=== PATIENT | female | born 1970 | race American Indian/Alaskan Native ===

== ENCOUNTER 2016-10-13 07:53 | Day surgery (SDC) | payer MEDICAID ==
[2016-10-12 11:50] LABS: Basophils % (Auto) 0.9 % (0.0-1.8); Eosinophils % (Auto) 1.9 % (0.0-4.3); Mean Corpuscular HGB Conc 29 % (30-34); Platelet Count 278 K/mm3 (140-440); Red Blood Count 4.41 M/mm3 (3.65-5.03); White Blood Count 8.7 K/mm3 (4.5-11.0)
[2016-10-12 11:51] LABS: Hematocrit 24.9 % (30.3-42.9); Hemoglobin 7.1 gm/dl (10.1-14.3); Mean Corpuscular Hemoglobin 16 pg (28-32); Mean Corpuscular Volume 57 fl (79-97); Red Cell Distribution Width 21.6 % (13.2-15.2)
--- NOTE | 2016-10-13 08:06 | Anesthesia Consultation ---
Anesthesia Consult and Med Hx - Airway Anesthetic Teeth Evaluation: Poor (missing multiple) ROM Head & Neck: Adequate Mental/Hyoid Distance: Adequate Mallampati Class: Class II Intubation Access Assessment: Probably Good - Pulmonary Exam CTA: Yes - Cardiac Exam Cardiac Exam: RRR - Pre-Operative Health Status ASA Pre-Surgery Classification: ASA2 Proposed Anesthetic Plan: General - Pre-Anesthesia Comment Pre-Anesthesia Comments: H&H- 7.03/08.9 - Pulmonary Hx Smoking: Yes - Hematic Hx Anemia: Yes - Other Systems Hx Alcohol Use: Yes (occas)
--- NOTE | 2016-10-13 08:09 | Anesthesia Day of Surgery ---
Anesthesia Day of Surgery - Day of Surgery Patient Examined: Yes Patient H&P Reviewed: Yes Patient is NPO: Yes
--- NOTE | 2016-10-13 08:52 | Short Stay Summary ---
Short Stay Documentation Date of service: 10/13/16 Narrative H&P: Pt is a 45yo BF LMP 10/06/16 presents for a Hysteroscopy and D&C due to prolonged heavy vaginal bleeding. She has a history of uterine fibroids, and an endometrial biopsy was attempted in the office, but was unsuccessful due to cervical stenosis. - History Principal diagnosis: Uterine fibroids; Menorrhagia H&P: obtained from office Past Medical History: other (uterine fibroids) Past Surgical History: Social history: no significant social history, single - Allergies and Medications Current Medications: Allergies Penicillins Allergy (Verified 09/30/16 15:47) Rash Home Medications Medication Instructions Recorded Confirmed Last Taken Type No Known Home Medications [No 09/30/16 09/30/16 Unknown History Reported Home Medications] Active Medications Famotidine (Pepcid) 20 mg PO PREOP NR Stop: 10/13/16 15:00 Sodium Chloride (Nacl 0.9% 1000 Ml) 1,000 mls @ 42 mls/hr IV DIRECT SHARMIN Midazolam HCl (Versed) 2 mg IV PREOP NR Stop: 10/13/16 23:59 - Physical exam General appearance: no acute distress Integumentary: no rash HEENT: Atraumatic Lungs: Clear to auscultation Breasts: deferred Heart: Regular rate Gastrointestinal: normal Female Genitourinary: deferred Rectal Exam: deferred Extremities: no ischemia Neurological: Normal gait, Normal speech - Brief post op/procedure progress note Date of procedure: 10/13/16 Pre-op diagnosis: 1. Uterine fibroids 2. Menorrhagia Post-op diagnosis: same Procedure: 1. Hysteroscopy 2. Dilatation and Curettage Anesthesia: MAC Findings: An enlarged uterus ~ 14 weeks size with a cervical fibroid. Uterine cavity showed lush amounts of endometrial tissue and submucosal fibroid. Surgeon: LIBRA VERDUZCO Estimated blood loss: minimal Pathology: list (endometrial curetting) Specimen disposition: to lab Condition: stable - Hospital course Hospital course: Unremarkable. - Disposition Condition at discharge: Good Disposition: DC-01 TO HOME OR SELFCARE - Discharge Diagnoses (1) Submucous uterine fibroid Status: Chronic (2) Menorrhagia Status: Chronic Qualifiers: Menorrahagia type: with irregular cycle Qualified Code(s): N92.1 - Excessive and frequent menstruation with irregular cycle Short Stay Discharge Plan Activity: no restrictions Diet: regular Follow up with: PRIMARY CARE, [Primary Care Provider] - 7 Days LIBRA VERDUZCO MD [Staff Physician] - 14 Days Prescriptions: Ferrous Sulfate [Feosol 325 MG tab] 325 mg PO BID #60 tablet HYDROcodone/APAP 5-325 [[place] 5/325] 1 each PO Q6HR PRN #20 tablet PRN Reason: Pain medroxyPROGESTERone ACETATE [Provera] 10 mg PO QDAY #10 tablet
[2016-10-13] MEDS: NACL 0.9% 1000 ML 1,000 ML IV SCH ×2 (08:59→11:27)
[2016-10-13] MEDS ORDERED: GARAMYCIN IV SCH (09:00)
[2016-10-13] MEDS ORDERED: CLEOCIN 600 MG/50 mL 600 MG/50 ML BAG IV NR (09:00)
[2016-10-13] MEDS ORDERED: PEPCID PO NR (09:00)
[2016-10-13] MEDS ORDERED: VERSED IV NR (09:00)
[2016-10-13] MEDS ORDERED: GARAMYCIN/NS 80 MG/100 ML 100 ML IV NR (09:00)
[2016-10-13] MEDS ORDERED: DIPRIVAN 10 MG/ML IV ONE (10:07)
[2016-10-13] MEDS ORDERED: SUBLIMAZE ONE (10:07)
[2016-10-13] MEDS ORDERED: XYLOCAINE MPF 2% ONE (10:08)
[2016-10-13] MEDS ORDERED: ZOFRAN ONE (10:08)
[2016-10-13] MEDS ORDERED: NACL 0.9% IR ONE ×2 (10:26→10:27)
[2016-10-13] MEDS ORDERED: TORADOL ONE (10:37)
--- NOTE | 2016-10-13 10:54 | Operative Report ---
Operative Report Operative Report: PREOPERATIVE DIAGNOSIS: 1. Uterine fibroids 2. Menorrhagia 3. Cervical stenosis POSTOPERATIVE DIAGNOSIS: Same OPERATIVE PROCEDURE: 1. Hysteroscopy 2. Dilatation and curettage. SURGEON: Travis Summers MD ANESTHESIA: Gen. [facility] ANESTHESIOLOGIST: Dr. Campos ESTIMATED BLOOD LOSS: 10 mL's FINDINGS: A 14 week size multiple myomatous uterus with a large cervical fibroid. The uterine cavity showed lush amounts of endometrial tissue and a submucosal fibroid COMPLICATIONS: None COUNTS: Correct x3. PROCEDURE: After the patient was correctly identified as the patient, and after general anesthesia was administered, the patient was prepped and draped in the usual sterile fashion and placed in dorsal lithotomy position. First, the bladder was emptied using a straight catheter. Next, a speculum was placed in the vaginal vault and the anterior lip of the cervix was grasped using a single-tooth tenaculum. There was a large cervical fibroid displacing the cervical os. The uterus was sounded to 10 cm. The cervical os was sequentially dilated, and the hysteroscope was introduced into the cervical canal. Visualization of the endometrial cavity showed lush amounts of endometrial tissue and a submucosal fibroid. The hysteroscope was then removed, and sharp curettage was performed yielding lush amounts of endometrial tissue which was sent to pathology. After all the endometrial tissue was removed, the procedure was considered complete. All instruments were removed from the vagina. The patient tolerated the procedure well and was transferred to the recovery room in stable condition.
[2016-10-13] MEDS: DILAUDID IV PRN ×2 (11:20→11:32)
[2016-10-13] MEDS ORDERED: ZOFRAN IV PRN (12:00)
[2016-10-13] MEDS ORDERED: NORCO 5/325 PO ONE (12:00)
[2016-10-13] MEDS ORDERED: BENADRYL IV ONE (12:25)
--- NOTE | 2016-10-13 13:06 | Post Anesthesia Evaluation ---
- Post Anesthesia Evaluation Patient Participated: Yes Airway Patent: Yes Stable Respiratory Function: Yes Nausea/Vomiting: No Temp > 96.8F: Yes Pain Manageable: Yes Adequeate Hydration: Yes Anesthesia Complications: No Block Receding Appropriately: Not Applicable Patient on Ventilator: No
[2016-10-13 14:25] VITALS: BP 130/72
== END 2016-10-13 13:15 | disposition home or self-care (01) ==
LOC: OR 07:53
PROVIDERS: ATTEND Obstetrics & Gynecology
DX: D25.0 Submucous leiomyoma of uterus (principal); N88.2 Stricture and stenosis of cervix uteri; D26.0 Other benign neoplasm of cervix uteri; F17.210 Nicotine dependence, cigarettes, uncomplicated; Z72.89 Other problems related to lifestyle; Z88.0 Allergy status to penicillin
CPT/HCPCS: 36415; 58558; 84703; 85025; 86850; 86900; 86901; 88305; A4217; J1170; J1200; J1580; J1885; J2250; J2405; J2704; J3010; J7030

== ENCOUNTER 2016-12-21 05:55 | Inpatient (IN) | payer MEDICAID, OTHER ==
--- NOTE | 2016-12-20 11:36 | Anesthesia Consultation ---
Anesthesia Consult and Med Hx Date of service: 12/20/16 - Airway Anesthetic Teeth Evaluation: Good ROM Head & Neck: Adequate Mental/Hyoid Distance: Adequate Mallampati Class: Class II Intubation Access Assessment: Probably Good - Pulmonary Exam CTA: Yes - Cardiac Exam Cardiac Exam: RRR Anesthetic Concerns: Patient has a fullness in neck, She denies thyroid problems and orthopnea. - Pre-Operative Health Status ASA Pre-Surgery Classification: ASA2 Proposed Anesthetic Plan: General - Pulmonary Hx Smoking: Yes (1/2 ppd) - Central Nervous System Hx Psychiatric Problems: No - Hematic Hx Anemia: Yes - Other Systems Hx Alcohol Use: Yes (occas) Hx Cancer: No
[2016-12-20 11:41] LABS: Basophils % (Auto) 0.3 % (0.0-1.8); Eosinophils % (Auto) 1.7 % (0.0-4.3); Mean Corpuscular HGB Conc 28 % (30-34); Platelet Count 122 K/mm3 (140-440); Red Blood Count 4.29 M/mm3 (3.65-5.03); White Blood Count 8.4 K/mm3 (4.5-11.0)
[2016-12-20 11:44] LABS: Hematocrit 24.3 % (30.3-42.9); Hemoglobin 6.7 gm/dl (10.1-14.3); Mean Corpuscular Hemoglobin 16 pg (28-32); Mean Corpuscular Volume 57 fl (79-97); Red Cell Distribution Width 23.4 % (13.2-15.2)
[~2016-12-21 05:55] MED LIST: LACTATED RINGERS 1,000 ML IV SCH; PEPCID PO NR; VERSED IV NR
[2016-12-21] MEDS ORDERED: NACL 0.9% 500 ML 500 ML IV ONE (06:40)
[2016-12-21] MEDS ORDERED: NACL BACTERIOSTATIC INFILTRATI ONE (06:41)
[2016-12-21] MEDS ORDERED: PEPCID PO NR (07:00)
[2016-12-21] MEDS ORDERED: NEO SYNEPHRINE/NS Syringe(OR USE) IV ONE (07:00)
[2016-12-21] MEDS ORDERED: CLEOCIN 600 MG/50 mL 600 MG/50 ML BAG IV SCH (07:00)
[2016-12-21] MEDS ORDERED: GARAMYCIN 80 MG in NACL 0.9% 100 ML IV SCH (07:00)
[2016-12-21] MEDS ORDERED: VERSED IV NR (07:00)
--- NOTE | 2016-12-21 07:05 | History and Physical Report ---
History of Present Illness Date of examination: 12/21/16 Date of admission: 12/21/16 05:55 Chief complaint: Symptomatic uterine fibroids History of present illness: Pt is a 46yo BF LMP 12/07/16 presents for surgical evaluation and treatment of uterine fibroids. She has a history of prolonged heavy vaginal bleeding with resulting blood transfusions for symptomatic anemia. Pelvic u/s confirmed uterine fibroids and endometrial biopsy showed proliferative endometrium. She is now scheduled for a Total Abdominal Hysterectomy with ovarian conservation. 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 Family/Genetic History: none Social history: no significant social history, single, smoking Medications and Allergies Allergies Allergy/AdvReac Type Severity Reaction Status Date / Time Penicillins Allergy Rash Verified 12/20/16 09:23 Home Medications Medication Instructions Recorded Confirmed Last Taken Type No Known Home Medications [No 12/20/16 12/20/16 Unknown History Reported Home Medications] Active Meds: Active Medications Famotidine (Pepcid) 20 mg PO PREOP NR Stop: 12/21/16 23:45 Last Admin: 12/21/16 06:47 Dose: 20 mg Lactated Ringer's (Lactated Ringers) 1,000 mls @ 100 mls/hr IV DIRECT SHARMIN Midazolam HCl (Versed) 2 mg IV PREOP NR Stop: 12/21/16 23:45 Review of Systems All systems: negative - Vital Signs Vital signs: Vital Signs Temp Pulse Resp BP 98.1 F 80 16 122/78 12/20/16 11:10 12/20/16 11:10 12/20/16 11:10 12/20/16 11:10 Temp Pulse Resp BP Pulse Ox 98.1 F 80 16 122/78 12/20/16 11:10 12/20/16 11:10 12/20/16 11:10 12/20/16 11:10 - Physical Exam Breasts: Positive: deferred Cardiovascular: Regular rate Lungs: Positive: Clear to auscultation Abdomen: Positive: normal appearance Genitourinary (Female): Positive: normal external genitalia Vagina: Positive: normal moisture Uterus: Positive: enlarged Extremities: Positive: normal Results Result Diagrams: 12/20/16 11:18 Abnormal lab results 12/20/16 12/20/16 Range/Units 11:18 11:18 Hgb 6.7 L (10.1-14.3) gm/dl Hct 24.3 L (30.3-42.9) % MCV 57 L (79-97) fl MCH 16 L (28-32) pg MCHC 28 L (30-34) % RDW 23.4 H (13.2-15.2) % Plt Count 122 L (140-440) K/mm3 Seg Neutrophils % 74.6 H (40.0-70.0) % Crossmatch See Detail All other labs normal. Assessment and Plan - Patient Problems (1) Anemia Onset Date: 12/21/16 Current Visit: Yes Status: Acute Qualifiers: Anemia type: iron deficiency Iron deficiency anemia type: chronic blood loss Vitamin B12 deficiency anemia type: V Folate deficiency anemia type: F Bone marrow failure anemia type: B Hemolytic anemia type: H Other causes of anemia: O Chronic kidney disease stage: C Qualified Code(s): D50.0 - Iron deficiency anemia secondary to blood loss (chronic) (2) Menorrhagia Onset Date: 12/21/16 Current Visit: Yes Status: Chronic Qualifiers: Menorrahagia type: with irregular cycle Qualified Code(s): N92.1 - Excessive and frequent menstruation with irregular cycle (3) Submucous uterine fibroid Onset Date: 12/21/16 Current Visit: Yes Status: Chronic Plan to address problem: A: Symptomatic uterine fibroids Menorrhagia Chronic blood loss anemia P: Admit for a Total Abdominal Hysterectomy Will transfuse 1 unit of blood now and use Cell saver during the procedure
[2016-12-21] MEDS ORDERED: DIPRIVAN 10 MG/ML IV ONE (07:27)
[2016-12-21] MEDS ORDERED: DILAUDID ONE (07:28)
[2016-12-21] MEDS ORDERED: XYLOCAINE MPF 2% ONE (07:30)
[2016-12-21] MEDS ORDERED: ZEMURON IV ONE (07:30)
--- NOTE | 2016-12-21 07:45 | Anesthesia Day of Surgery ---
Anesthesia Day of Surgery - Day of Surgery Patient Examined: Yes Patient H&P Reviewed: Yes Patient is NPO: Yes
[2016-12-21] MEDS ORDERED: DECADRON ONE ×2 (07:54→09:07)
[2016-12-21] MEDS ORDERED: MARCAINE 0.5% 30 ML INFILTRATI ONE ×2 (07:55→07:59)
[2016-12-21] MEDS ORDERED: CLONIDINE 1,000 MCG/10 ML VIAL EP ONE (07:55)
[2016-12-21] MEDS ORDERED: XYLOCAINE 1% 20 mL ONE (07:55)
[2016-12-21] MEDS ORDERED: SUBLIMAZE ONE (08:05)
[2016-12-21] MEDS ORDERED: NACL 0.9% IR ONE (08:56)
[2016-12-21] MEDS ORDERED: ACD-A IV ONE (08:57)
[2016-12-21] MEDS ORDERED: GARAMYCIN/NS 80 MG/100 ML 100 ML IV SCH (09:00)
[2016-12-21] MEDS ORDERED: ZOFRAN ONE (09:07)
[2016-12-21] MEDS ORDERED: NEOSTIGMINE ONE (09:16)
[2016-12-21] MEDS ORDERED: ROBINUL ONE (09:16)
--- NOTE | 2016-12-21 09:59 | Operative Report ---
Operative Report Operative Report: Date of procedure: 12/21/2016 Pre-operative diagnosis: 1. Symptomatic fibroid uterus 2. Menorrhagia 3. Chronic blood loss anemia Post-operative diagnosis: Same with pelvic adhesions Procedure name(s): 1. Total abdominal hysterectomy 2. Bilateral salpingectomy 3. Lysis of pelvic adhesions Surgeon: Travis Summers MD Rail Car Loader: Marino Durham SA Anesthesia: AASHISH block followed by general endotracheal intubation by Dr Campos EBL: 50 mL's Findings: A 14 week size multiple myomatous uterus with a large pedunculated fibroid. Normal ovaries bilaterally. Tubes showing evidence of previous tubal ligation bilaterally. Omental adhesions to the lower uterine segment. Procedure: After the patient was first correctly identified and after general anesthesia was administered she was prepped and draped in usual in the usual sterile fashion and placed in the dorsolithotomy position. The skin knife was used to make a transverse skin incision through the previous skin scar. The incision was extended down to the layer of the fascia which was nicked in the midline and extended laterally using Bovie cautery. The rectus muscles were dissected off the rectus fascia both superiorly and inferiorly, the rectus bellies in the midline and the peritoneum was entered under direct visualization. Exploration of the pelvic organs found the uterus to be enlarged with a large pedunculated fibroid, and the tubes showed evidence of previous tubal ligation bilaterally and ovaries were normal bilaterally. Next the bowels were packed back and the distal portion of the right fallopian tube was excised using the Enseal device. The right round ligament was clamped, cauterized and cut using the Enseal device. The right utero-ovarian ligament was clamped, cauterized and cut, thus freeing the right ovary from the right uterine sidewall. The same procedure was performed on the left. The distal portion of the left fallopian tube was excised using the Enseal device. The left round ligament was clamped, cauterized and cut using the Enseal device, and the left utero-ovarian ligament was clamped, cauterized and cut thus freeing the left ovary from the left uterine sidewall. The uterine vessels were then skeletonized bilaterally, and the bladder flap was taken down anteriorly and the omental adhesions to the lower uterine segment was taken down using both sharp and blunt dissection. The uterine vessels were then clamped, cauterized and cut and suture ligated bilaterally, and the cardinal ligaments were sequentially clamped, cauterized and cut down to the level of the uterosacral ligaments. The cervix was then amputated from the vaginal cuff and the specimen was handed off the surgical field. The vaginal cuff was then made hemostatic using several sutures of 0 Vicryl suture in a [id number] configuration. After excellent hemostasis was assured copious amounts of irrigation was then performed. The Tisseel sealant was then sprayed across the vaginal cuff and the superior pedicles bilaterally and after excellent hemostasis was assured the procedure was considered complete. All instruments removed from abdomen, and the peritoneum was closed using 0 Vicryl suture in a running interlocking fashion and the rectus muscles were also loosely re- approximated using 0 Vicryl suture in a [id number] configuration. The fascia was then re-approximated using #1 Vicryl suture in a running interlocking fashion, the subcutaneous layer made hemostatic using Bovie cautery and the skin edges re-approximated using 4-0 Vicryl suture in a sub- cuticular fashion. Patient tolerated the procedure well was transported to recovery room in stable condition.
[2016-12-21] MEDS: DILAUDID IV PRN ×4 (10:20→10:45)
[2016-12-21] MEDS ORDERED: NARCAN 0.4 MG/1 ML IV PRN (11:00)
[2016-12-21] MEDS ORDERED: REGLAN IV PRN (11:00)
[2016-12-21] MEDS ORDERED: NORCO 5/325 PO PRN (11:00)
[2016-12-21] MEDS ORDERED: ZOFRAN IV PRN (11:00)
[2016-12-21] MEDS ORDERED: TYLENOL PO PRN (11:00)
[2016-12-21] MEDS: D5LR 1,000 ML IV SCH ×2 (12:47→21:24)
[2016-12-21] MEDS: TORADOL IV PRN ×2 (12:47→21:21)
[2016-12-21] MEDS: BENADRYL PO PRN ×2 (14:10→23:17)
[2016-12-21] MEDS: CLEOCIN 600 MG/50 mL 600 MG/50 ML BAG IV SCH (16:37)
[2016-12-21] MEDS: PERCOCET 5/325 PO PRN ×2 (16:38→23:17)
[2016-12-21] MEDS: GARAMYCIN/NS 80 MG/100 ML 100 ML IV SCH (17:31)
[2016-12-21] MEDS: COLACE PO SCH (21:25)
[2016-12-22] MEDS: CLEOCIN 600 MG/50 mL 600 MG/50 ML BAG IV SCH (00:57)
[2016-12-22] MEDS: GARAMYCIN/NS 80 MG/100 ML 100 ML IV SCH (01:59)
[2016-12-22] MEDS: D5LR 1,000 ML IV SCH (05:12)
[2016-12-22] MEDS: TORADOL IV PRN (05:13)
[2016-12-22 05:39] LABS: Hematocrit 24.8 % (30.3-42.9); Hemoglobin 7.1 gm/dl (10.1-14.3)
[2016-12-22] MEDS: PERCOCET 5/325 PO PRN ×4 (06:13→23:16)
--- NOTE | 2016-12-22 06:58 | Progress Note ---
Assessment and Plan - Patient Problems (1) Anemia Onset Date: 12/21/16 Current Visit: Yes Status: Chronic Qualifiers: Anemia type: iron deficiency Iron deficiency anemia type: chronic blood loss Vitamin B12 deficiency anemia type: V Folate deficiency anemia type: F Bone marrow failure anemia type: B Hemolytic anemia type: H Other causes of anemia: O Chronic kidney disease stage: C Qualified Code(s): D50.0 - Iron deficiency anemia secondary to blood loss (chronic) (2) Menorrhagia Onset Date: 12/21/16 Current Visit: Yes Status: Resolved Qualifiers: Menorrahagia type: with irregular cycle Qualified Code(s): N92.1 - Excessive and frequent menstruation with irregular cycle (3) Submucous uterine fibroid Onset Date: 12/21/16 Current Visit: Yes Status: Resolved (4) S/P JANETH (total abdominal hysterectomy) Onset Date: 12/22/16 Current Visit: Yes Status: Resolved Plan to address problem: A: S/P JANETH - POD #1 Doing well Asymptomatic anemia - stable P: Continue RPOC Advance diet as tolerated Anticipate discharge in 24hrs Subjective - Subjective Date of service: 12/22/16 Principal diagnosis: s/p JANETH - POD #1 Interval history: Pt is feeling well without complaints. Tolerating a liquid diet without nausea or vomiting. Patient reports: appetite normal, voiding normally, pain well controlled, flatus , ambulating normally Objective - Vital Signs Latest vital signs: Vital Signs Temp Pulse Resp BP BP Pulse Ox 12/22/16 04:30 98.6 F 67 16 121/75 12/21/16 23:30 98.6 F 60 16 104/68 12/21/16 19:40 98.6 F 71 18 122/64 12/21/16 16:30 97.6 F 58 L 18 122/48 12/21/16 11:42 96.6 F L 66 16 101/63 12/21/16 10:57 12 12/21/16 10:45 98.1 F 69 14 102/65 100 12/21/16 10:44 12 12/21/16 10:37 14 12/21/16 10:30 63 14 106/66 100 12/21/16 10:20 18 12/21/16 10:15 64 18 111/72 100 12/21/16 10:05 70 16 110/77 100 12/21/16 10:00 72 14 112/78 100 12/21/16 09:55 66 14 102/68 100 12/21/16 09:50 97.5 F L 72 14 122/77 100 12/21/16 08:10 75 12 116/72 100 12/21/16 08:05 78 18 114/68 100 12/21/16 08:00 67 17 110/73 100 12/21/16 07:55 76 13 110/71 100 12/21/16 07:37 97.9 F 81 16 110/72 100 12/21/16 07:22 98.2 F 72 20 109/71 100 Intake and Output 12/21/16 12/21/16 12/22/16 14:59 22:59 06:59 Intake Total 875 1630 1575 Output Total 180 200 Balance 695 1430 1575 Intake: IV 625 1150 975 CLEOCIN 600 MG/50 mL 600 50 mg In 50 ml @ 100 mls/hr IV Q8H SHARMIN Rx#:[id number] D5lr 1,000 ml @ 125 mls/ 1000 975 hr IV DIRECT SHARMIN Rx#: [id number] Garamycin/Ns 80 mg/100 ml 100 100 ml @ 200 mls/hr IV Q8H SHARMIN Rx#:[id number] Oral 480 Intake, Free Water 600 Blood Product 250 Leukoreduced Red Blood 250 Cells Unit [id number] Output: Urine 180 200 Indwelling Catheter 200 Other: Total, Intake Amount 240 Total, Output Amount 200 Voiding Method Indwelling Catheter Toilet # Voids Void 1 - Exam Breasts: Present: deferred Cardiovascular: Present: Regular rate Lungs: Present: Clear to auscultation Abdomen: Present: normal appearance, soft Extremities: Present: normal Incision: Present: normal, dry, intact - Labs Labs: Abnormal lab results 12/20/16 12/22/16 Range/Units 11:18 05:21 Hgb 7.1 L (10.1-14.3) gm/dl Hct 24.8 L (30.3-42.9) % Crossmatch See Detail Laboratory Tests 12/20/16 12/20/16 12/20/16 11:18 11:18 11:18 WBC 8.4 RBC 4.29 Hgb 6.7 L Hct 24.3 L MCV 57 L MCH 16 L MCHC 28 L RDW 23.4 H Plt Count 122 L Lymph % (Auto) 18.1 [place] % (Auto) 5.3 Eos % (Auto) 1.7 Baso % (Auto) 0.3 Lymph # 1.5 [place] # 0.5 Eos # 0.1 Baso # 0.0 Seg Neutrophils % 74.6 H Seg Neutrophils # 6.3 HCG, Qual Negative Blood Type B POSITIVE Antibody Screen Negative Crossmatch See Detail 12/22/16 05:21 WBC RBC Hgb 7.1 L Hct 24.8 L MCV MCH MCHC RDW Plt Count Lymph % (Auto) [place] % (Auto) Eos % (Auto) Baso % (Auto) Lymph # [place] # Eos # Baso # Seg Neutrophils % Seg Neutrophils # HCG, Qual Blood Type Antibody Screen Crossmatch
[2016-12-22] MEDS: COLACE PO SCH ×2 (11:48→23:16)
--- NOTE | 2016-12-22 14:23 | Progress Note ---
Subjective Date of service: 12/22/16 Principal diagnosis: s/p JANETH - POD #1 Interval history: 1st POD after JANETH Patient is in the bed, comfortable. Pain is well controlled with pain meds. Ambulated well. No nausea or vomiting. No anesthesia complications. Objective - Constitutional Vitals: Vital Signs - 12hr 12/22/16 12/22/16 12/22/16 04:30 08:09 08:10 Temperature 98.6 F 98.3 F Pulse Rate 67 66 64 Respiratory 16 20 Rate Blood Pressure 121/75 116/68 [Left] O2 Sat by Pulse 100 100 Oximetry 12/22/16 12/22/16 11:05 11:07 Temperature 98.1 F Pulse Rate 59 L 54 L Respiratory 18 Rate Blood Pressure 116/60 [Left] O2 Sat by Pulse 100 100 Oximetry - Labs CBC & Chem 7: 12/22/16 05:21 Labs: Abnormal lab results 12/22/16 Range/Units 05:21 Hgb 7.1 L (10.1-14.3) gm/dl Hct 24.8 L (30.3-42.9) %
[2016-12-22] MEDS: MOTRIN PO PRN (17:56)
[2016-12-23] MEDS: MOTRIN PO PRN (03:18)
[2016-12-23] MEDS: PERCOCET 5/325 PO PRN (06:45)
--- NOTE | 2016-12-23 08:06 | Progress Note ---
Assessment and Plan POD # 2 s/p JANETH -Asymptomatic Anemia -Doing well P: -Discharged home today -Follow-up in clinic in 1-2 weeks for incision check - Patient Problems (1) S/P JANETH (total abdominal hysterectomy) Onset Date: 12/22/16 Current Visit: Yes Status: Resolved Subjective - Subjective Date of service: 12/23/16 Principal diagnosis: s/p JANETH - POD #2 Interval history: Patient seen and examined, stable doing well no issues. No shortness of breath or chest pain no fever or chills, ambulating without difficulty adequate bowel bladder function Patient reports: appetite normal, voiding normally, pain well controlled, flatus , ambulating normally, no dizzy ambulation, no nauseated Objective - Vital Signs Latest vital signs: Vital Signs Temp Pulse Resp Resp BP BP Pulse Ox 12/23/16 06:45 18 12/23/16 04:20 99.1 F 76 20 104/57 12/23/16 03:18 18 12/23/16 00:00 97.9 F 82 20 101/53 12/22/16 23:16 18 18 12/22/16 20:00 98.0 F 75 20 112/62 12/22/16 16:31 80 100 12/22/16 16:30 98.9 F 81 20 128/77 100 12/22/16 11:07 54 L 100 12/22/16 11:05 98.1 F 59 L 18 116/60 100 12/22/16 08:10 98.3 F 64 20 116/68 100 12/22/16 08:09 66 100 Intake and Output 12/22/16 12/23/16 12/23/16 23:59 07:59 15:59 Intake Total 540 240 Balance 540 240 Intake: Oral 540 240 Other: Total, Intake Amount 240 120 # Voids Void 1 1 - Exam Abdomen: Present: normal appearance, soft. Absent: distention, tenderness, guarding, rigidity Extremities: Present: normal Incision: Present: dry, intact
--- NOTE | 2016-12-23 08:12 | Discharge Summary ---
Providers - Providers Date of Admission: 12/21/16 05:55 Date of discharge: 12/23/16 Attending physician: LIBRA VERDUZCO Primary care physician: LULY DEWEY MD Hospitalization Reason for admission: vaginal bleeding, other (scheduled hysterectomy) Procedure: other (total abdominal hysterectomy) Incision: dry, intact Discharge diagnosis: other (status post total abdominal hysterectomy) Hospital course: Uncomplicated hospital course Condition at discharge: Good Disposition: DC-01 TO HOME OR SELFCARE - Discharge Diagnoses (1) S/P JANETH (total abdominal hysterectomy) Status: Resolved Plan - Discharge Medications Prescriptions: Ibuprofen [Motrin] 800 mg PO Q8HR PRN #30 tablet PRN Reason: Mild Pain Unrelieved By Apap oxyCODONE /ACETAMINOPHEN [Percocet 5/325] 1 tab PO Q6HR PRN #30 tablet PRN Reason: Pain - Provider Discharge Summary Activity: no sex for 6 weeks, no heavy lifting 4 weeks, no strenuous exercise Diet: routine Additional instructions: [] Smoking cessation referral if applicable(refer to patient education folder for contact #) [] Refer to [facility]'s [facility] Booklet Call your doctor immediately for: * Fever > 100.5 * Heavy vaginal bleeding ( >1 pad per hour) * Severe persistent headache * Shortness of breath * Reddened, hot, painful area to leg or breast * Drainage or odor from incision. * Keep incision clean and dry at all times and follow doctor's instructions regarding bathing/showering - Follow up plan Follow up: PRIMARY CARE, [Primary Care Provider] - 7 Days
[2016-12-23] MEDS: COLACE PO SCH (08:51)
[2016-12-23 09:21] VITALS: BP 124/78
== END 2016-12-23 10:00 | disposition home or self-care (01) | DRG 743 ==
LOC: 3A 05:55 → OB 10:09
PROVIDERS: ADMIT Obstetrics & Gynecology; ATTEND Obstetrics & Gynecology
PROC: 0UT90ZZ Resection of Uterus, Open Approach (ICD-10-PCS; principal; 2016-12-21)
DX: D25.0 Submucous leiomyoma of uterus (principal); D50.0 Iron deficiency anemia secondary to blood loss (chronic); N92.0 Excessive and frequent menstruation with regular cycle; Z88.0 Allergy status to penicillin
CPT/HCPCS: 36415; 64450; 84703; 85014; 85018; 85025; 86850; 86900; 86901; 86920; 88307; C9250; J0735; J1100; J1170; J1580; J1885; J2250; J2370; J2405; J2704; J2710; J3010; J7040; J7120; J7121; P9016

== ENCOUNTER 2019-11-25 12:17 | Outpatient (CLI) | payer OTHER ==
--- NOTE | 2019-11-26 10:25 | Mammography Report ---
BILATERAL DIGITAL DIAGNOSTIC MAMMOGRAM WITH CAD 11/25/2019 BILATERAL LIMITED BREAST ULTRASOUND INDICATION: The patient reports a left breast lump and pain. TECHNIQUE: Digital bilateral mammographic imaging was performed. Limited ultrasound was performed. T his examination was interpreted with the benefit of Computer-Aided Detection (CAD) analysis. COMPARISON: Bilateral mammogram, 07/28/2016 from [facility]. FINDINGS: Breast Density: The breasts are heterogeneously dense, which may obscure small masses. MAMMOGRAPHIC FINDINGS: There is no evidence of dominant mass, suspicious calcifications or architectu ral distortion in either breast. Bilateral circumscribed nodularity does not appear significantly aliza nged when compared to the previous mammogram. No focal abnormality is seen to correspond to the area of patient's palpable concern in the left breast at the 9:00 position. ULTRASOUND FINDINGS: Targeted ultrasound evaluation was performed of the area of interest. Right breast: Sonographic evaluation of the upper outer right breast demonstrates several scattered c ysts and fibrocystic change, accounting for the mammographic finding. There is no evidence of suspici ous solid mass or shadowing. Left breast: Sonographic evaluation of the left breast at the 10:00 position 15 cm from the nipple de monstrates no evidence of suspicious solid mass or shadowing. There is no focal abnormality to accoun t for the patient's area of clinical concern. IMPRESSION: Follow up recommendation: Clinical exam BI-RADS Category 2: Benign. Clinical correlation is recommended for the patient's area of palpable c oncern in the left breast. A "normal" or negative report should not discourage follow up or biopsy of a clinically significant f inding. A written summary of these findings will be mailed to the patient. The patient will be entered into a mammography reporting system which will generate a reminder letter for the patient's next appointmen t at the appropriate interval. According to the [employer], yearly mammograms are recommended starting at age 40 and continuing as long as a woman is in good health. Breast MRI is recommended for women with an carline roximately 20-25% or greater lifetime risk of breast cancer, including women with a strong family his tory of breast or ovarian cancer and women who have been treated for Hodgkin's disease. Signer Name: Ines Paez MD Signed: 11/26/2019 10:20 AM Workstation Name: [id number]
== END 2019-11-25 12:18 | disposition home or self-care (01) ==
LOC: MAMMO 12:17
PROVIDERS: ATTEND Family Medicine Adult Medicine
DX: Z12.31 Encounter for screening mammogram for malignant neoplasm of breast (principal); N60.01 Solitary cyst of right breast
CPT/HCPCS: 77066